=== PATIENT | male | born 1990 | race Caucasian/White ===

== ENCOUNTER 2017-12-02 11:28 | Emergency (ER) | payer OTHER, SELFPAY ==
[2017-12-02] MEDS ORDERED: Ibuprofen 400 MG TAB ONE (12:35)
[2017-12-02] MEDS ORDERED: traMADol HCl 50 MG TAB ONE (12:35)
--- NOTE | 2017-12-02 14:33 | RAD ---
RIGHT KNEE FOUR VIEWS: History: Knee pain. FINDINGS: Joint spaces are normally maintained. No fracture. No joint effusion. No degenerative change. IMPRESSION: Unremarkable right knee. POS: [facility]
== END 2017-12-02 13:17 | disposition home or self-care (01) ==
LOC: MADERS 11:28
DX: S82.001A Unspecified fracture of right patella, initial encounter for closed fracture (principal); F17.220 Nicotine dependence, chewing tobacco, uncomplicated; W18.39XA Other fall on same level, initial encounter

== ENCOUNTER 2020-05-30 07:34 | Emergency (ER) | payer BC, SELFPAY ==
[2020-05-30] MEDS ORDERED: Ondansetron ODT 4 MG TAB ONE (08:10)
[2020-05-30] MEDS ORDERED: Ketorolac Tromethamine 30 MG/ML VIAL ONE (08:10)
== END 2020-05-30 08:39 | disposition home or self-care (01) ==
LOC: MADERS 07:34
DX: G44.209 Tension-type headache, unspecified, not intractable (principal); F17.220 Nicotine dependence, chewing tobacco, uncomplicated
CPT/HCPCS: 96372; 99283; J1885; Q0162

== ENCOUNTER 2022-07-18 22:38 | Emergency (ER) | payer BC, SELFPAY ==
[2022-07-18] MEDS ORDERED: Ketorolac Tromethamine 30 MG/ML VIAL ONE (23:24)
[2022-07-18] MEDS ORDERED: Orphenadrine Citrate 60 MG/2 ML VIAL ONE (23:24)
== END 2022-07-19 00:15 | disposition home or self-care (01) ==
LOC: MADERS 22:38
DX: M94.0 Chondrocostal junction syndrome [Tietze] (principal); F17.290 Nicotine dependence, other tobacco product, uncomplicated
CPT/HCPCS: 71045; 93005; 96372; J1885; J2360